=== PATIENT | female | born 1935 | race Caucasian/White ===

== ENCOUNTER 2017-08-14 03:07 | Inpatient (IN) | payer MEDICARE, OTHER ==
[~2017-08-14] VITALS: Ht 175.3 cm; Wt 82.6 kg
[2017-08-14] MEDS ORDERED: SODIUM CHLORIDE 0.9% 1,000 ML IV ONE (03:10)
[2017-08-14 03:25] LABS: BASOPHILS % (AUTO) 0 % (0-1); EOSINOPHILS # (AUTO) 0.01 x10^3/uL (0-0.4); EOSINOPHILS % (AUTO) 0 % (1-7); LYMPHOCYTES # (AUTO) 0.55 x10^3/uL (1-3.4); LYMPHOCYTES % (AUTO) 7 % (22-44); MD NO; MEAN CORPUSCULAR HEMOGLOBIN 33.2 pg (27.0-34.8); MEAN CORPUSCULAR HGB CONC 33.9 g/dL (32.4-35.8); MEAN CORPUSCULAR VOLUME 97.8 fL (80-100); MEAN PLATELET VOLUME 7.1 fL (7.4-10.4); MONOCYTES # (AUTO) 0.16 x10^3/uL (0.2-0.8); MONOCYTES % (AUTO) 2 % (2-9); NEUTROPHILS # (AUTO) 6.85 x10^3/uL (1.8-6.8); NEUTROPHILS % (AUTO) 91 % (42-75); PLATELET COUNT 208 x10^3/uL (130-400); RED CELL DISTRIBUTION WIDTH 14.1 % (9.6-15.2)
[2017-08-14] MEDS ORDERED: MORPHINE SULFATE 4 MG/ML, 1ML ONE (03:25)
[2017-08-14] MEDS ORDERED: PROMETHAZINE 25 MG/ML, 1ML ONE (03:25)
[2017-08-14] MEDS ORDERED: SODIUM CHLORIDE FLUSH 10ML SYR IVF ONE (03:30)
[2017-08-14] MEDS ORDERED: SODIUM CHLORIDE 0.9% 1,000ML IVBOLUS ONE (03:30)
[2017-08-14] MEDS ORDERED: MORPHINE SULFATE 4 MG/ML, 1ML IVPush PRN (03:30)
[2017-08-14] MEDS ORDERED: PROMETHAZINE 25 MG/ML, 1ML IM ONE (03:30)
[2017-08-14 03:36] LABS: INTERNATIONAL NORMALIZED RATIO 1.03 (0.93-1.1); PROTHROMBIN TIME 10.7 Seconds (9.6-11.5)
[2017-08-14 03:38] LABS: ALANINE AMINOTRANSFERASE 34 U/L (12-78); ALBUMIN 3.9 g/dL (3.4-5.0); ANION GAP 10 mmol/L (5-15); CALCIUM 8.3 mg/dL (8.5-10.1); CHLORIDE 106 mmol/L (98-107); CREATININE 0.97 mg/dL (0.55-1.02)
[2017-08-14 03:40] LABS: ALKALINE PHOSPHATASE 48 U/L (45-117); BILIRUBIN,TOTAL 0.7 mg/dL (0.2-1.0); TOTAL PROTEIN 7.1 g/dL (6.4-8.2)
[2017-08-14] MEDS ORDERED: cilostazol (03:44)
[2017-08-14] MEDS ORDERED: atorvastatin (03:44)
[2017-08-14] MEDS ORDERED: acyclovir (03:44)
[2017-08-14] MEDS ORDERED: oxybutynin (03:44)
[2017-08-14] MEDS ORDERED: LEVO112T4 PO (03:44)
[2017-08-14 05:30] VITALS: BP 125/64
[2017-08-14] MEDS ORDERED: ONDANSETRON ODT 4 MG PO PRN (06:00)
[2017-08-14] MEDS ORDERED: PROMETHAZINE 25 MG/ML, 1ML IM PRN (06:00)
[2017-08-14] MEDS ORDERED: OXYcodone IR 5MG TABLET PO PRN (06:00)
[2017-08-14] MEDS ORDERED: hydrALAzine 20 MG/ML, 1ML IVPush PRN (06:00)
[2017-08-14] MEDS ORDERED: morphine SULFATE 10 MG/ML, 1ML IVPush PRN (06:00)
[2017-08-14] MEDS ORDERED: ONDANSETRON 2MG/ML, 2ML IVPush PRN (06:00)
[2017-08-14 06:28] LABS: FREE T4 (FREE THYROXINE) 1.44 ng/dL (0.76-1.46); THYROID STIMULATING HORMONE 1.3 mIU/L (0.358-3.740)
[2017-08-14 07:25] VITALS: BP 110/66
[2017-08-14] MEDS: SODIUM CHLORIDE 0.9% 1,000 ML IV SCH ×2 (07:44→12:22)
[2017-08-14] MEDS: LEVOTHYROXINE 100 MCG INJ IVPush SCH (07:51)
[2017-08-14] MEDS: PANTOPRAZOLE 40 MG IV IVPush SCH (07:51)
[2017-08-14 08:53] LABS: MICROSCOPIC AUTO
[2017-08-14 08:56] LABS: CULTURE INDICATED? NO
[2017-08-14 13:16] VITALS: BP 112/66
[2017-08-14 18:56] VITALS: BP 119/69
[2017-08-15] MEDS: SODIUM CHLORIDE 0.9% 1,000 ML IV SCH (00:08)
[2017-08-15 03:32] VITALS: BP 114/69
[2017-08-15 06:08] LABS: BASOPHILS # (AUTO) 0.12 x10^3/uL (0-0.1); BASOPHILS % (AUTO) 2 % (0-1); EOSINOPHILS # (AUTO) 0.16 x10^3/uL (0-0.4); EOSINOPHILS % (AUTO) 3 % (1-7); LYMPHOCYTES # (AUTO) 1.01 x10^3/uL (1-3.4); LYMPHOCYTES % (AUTO) 16 % (22-44); MD NO; MEAN CORPUSCULAR HEMOGLOBIN 33.5 pg (27.0-34.8); MEAN CORPUSCULAR HGB CONC 33.9 g/dL (32.4-35.8); MEAN CORPUSCULAR VOLUME 98.8 fL (80-100); MEAN PLATELET VOLUME 6.9 fL (7.4-10.4); MONOCYTES # (AUTO) 0.65 x10^3/uL (0.2-0.8); MONOCYTES % (AUTO) 10 % (2-9); NEUTROPHILS # (AUTO) 4.41 x10^3/uL (1.8-6.8); NEUTROPHILS % (AUTO) 70 % (42-75); PLATELET COUNT 172 x10^3/uL (130-400); RED BLOOD COUNT 4.24 x10^6/uL (3.82-5.3); RED CELL DISTRIBUTION WIDTH 14.3 % (9.6-15.2)
[2017-08-15 06:21] LABS: CHLORIDE 113 mmol/L (98-107)
[2017-08-15 06:31] LABS: ALANINE AMINOTRANSFERASE 27 U/L (12-78); ALKALINE PHOSPHATASE 41 U/L (45-117); ANION GAP 7 mmol/L (5-15); BILIRUBIN,TOTAL 0.8 mg/dL (0.2-1.0); CALCIUM 7.5 mg/dL (8.5-10.1); CHOL/HDL RATIO 2.2; CHOLESTEROL, TOTAL 116 mg/dL (140-239); HDL CHOL % 46 % (28-40); HDL CHOLESTEROL (DIRECT) 53 mg/dL (40-60); LDL CHOLESTEROL,CALCULATED 40 mg/dL (54-169); LDL/HDL RATIO 0.8 (0.5-3.0); TOTAL PROTEIN 5.9 g/dL (6.4-8.2); TRIGLYCERIDES 113 mg/dL (50-200); VLDL CHOLESTEROL 23 mg/dL (0-25)
[2017-08-15 07:49] VITALS: BP 137/74
[2017-08-15] MEDS: LEVOTHYROXINE 100 MCG INJ IVPush SCH (08:44)
[2017-08-15] MEDS: PANTOPRAZOLE 40 MG IV IVPush SCH (08:44)
[2017-08-15 13:06] VITALS: BP 128/72
[2017-08-15 20:14] VITALS: BP 110/64
[2017-08-16 01:48] VITALS: BP_SYST 114; BP_SYST 117; BP_SYST 132; BP_DIAS 71; BP_DIAS 74; BP_DIAS 80
[2017-08-16 06:06] LABS: ANION GAP 5 mmol/L (5-15); CALCIUM 7.9 mg/dL (8.5-10.1); CHLORIDE 112 mmol/L (98-107)
[2017-08-16 06:07] LABS: CREATININE 0.72 mg/dL (0.55-1.02)
[2017-08-16 07:44] VITALS: BP 121/73
[2017-08-16] MEDS: LEVOTHYROXINE 100 MCG INJ IVPush SCH (07:48)
[2017-08-16] MEDS: PANTOPRAZOLE 40 MG IV IVPush SCH (07:48)
[2017-08-16 14:23] VITALS: BP 113/64
[2017-08-16] MEDS ORDERED: OMEP-110 PO (14:43)
== END 2017-08-16 16:55 | disposition home or self-care (01) | DRG 388 ==
LOC: ED 05:00 → 4EST 05:01 → DCLOUNGE 08-16 16:23
PROVIDERS: ADMIT Internal Medicine; ATTEND Internal Medicine
PROC: 0D9670Z Drainage of Stomach with Drainage Device, Via Natural or Artificial Opening (ICD-10-PCS; principal; 2017-08-15)
DX: K56.2 Volvulus (principal); J96.00 Acute respiratory failure, unspecified whether with hypoxia or hypercapnia; K44.0 Diaphragmatic hernia with obstruction, without gangrene; J98.11 Atelectasis; E03.9 Hypothyroidism, unspecified; E78.5 Hyperlipidemia, unspecified; I73.9 Peripheral vascular disease, unspecified; Z90.710 Acquired absence of both cervix and uterus; Z90.49 Acquired absence of other specified parts of digestive tract; R91.1 Solitary pulmonary nodule; N31.9 Neuromuscular dysfunction of bladder, unspecified; Z87.891 Personal history of nicotine dependence
CPT/HCPCS: 36415; 74018; 74241; 80048; 80053; 80061; 81001; 83690; 83735; 84100; 84439; 84443; 85025; 85610; 85730; 96361; 96372; 96374; J2550; C9113; J7030

== ENCOUNTER → 2017-09-06 | Outpatient (CLI) | payer MEDICARE, OTHER ==
[~2017-09-06] MED LIST: ACYC-114 PO; ATOR20TA PO; CILO50TA PO; LEVO112T4 PO; OMEP-110 PO; OXYB10TA6 PO; acyclovir; atorvastatin; cilostazol; oxybutynin
== END | disposition home or self-care (01) ==
LOC: STAR 09:56
PROVIDERS: ATTEND Surgery
DX: Z01.818 Encounter for other preprocedural examination (principal)
CPT/HCPCS: 93005

== ENCOUNTER 2017-09-12 05:27 | Inpatient (IN) | payer MEDICARE, OTHER ==
[~2017-09-12] VITALS: Ht 176.5 cm; Wt 81.5 kg
[2017-09-12] MEDS ORDERED: LACTATED RINGERS 1,000 ML IV SCH (06:11)
[2017-09-12 06:31] VITALS: BP 108/68
[2017-09-12] MEDS ORDERED: EPINEPHRINE 1 MG/ML, 1ML ONE (07:14)
[2017-09-12] MEDS ORDERED: BUPIVACAINE/PF 0.25% ONE (07:14)
[2017-09-12] MEDS ORDERED: MIDAZOLAM 1 MG/ML, 2ML ONE (07:22)
[2017-09-12] MEDS ORDERED: FENTANYL PF 100 MCG/2ML ONE ×3 (07:22→10:27)
[2017-09-12] MEDS ORDERED: GABAPENTIN 300 MG CAPSULE PO ONE (07:30)
[2017-09-12] MEDS ORDERED: ACETAMINOPHEN 500 MG TABLET PO ONE (07:30)
[2017-09-12] MEDS ORDERED: FAMOTIDINE 20 MG TABLET PO ONE (07:30)
[2017-09-12] MEDS ORDERED: OXYcodone IR 5MG TABLET PO ONE (07:30)
[2017-09-12] MEDS ORDERED: ONDANSETRON ODT 8 MG PO ONE (07:30)
[2017-09-12] MEDS ORDERED: ROCURONIUM 10 MG/ML,10ML ONE (07:33)
[2017-09-12] MEDS ORDERED: BUPIVACAINE/PF 0.25% INFIL ONE (08:19)
[2017-09-12] MEDS ORDERED: EPINEPHRINE 1 MG/ML, 1ML INFIL ONE (08:20)
[2017-09-12] MEDS ORDERED: ONDANSETRON ODT 8 MG PO PRN (09:00)
[2017-09-12] MEDS ORDERED: FENTANYL PF 100 MCG/2ML IV PRN (09:00)
[2017-09-12] MEDS ORDERED: EPHEDRINE 50 MG/ML, 1ML IVPush PRN (09:00)
[2017-09-12] MEDS ORDERED: hydrALAzine 20 MG/ML, 1ML IV PRN (09:00)
[2017-09-12] MEDS ORDERED: PROMETHAZINE 25 MG/ML, 1ML IV PRN (09:00)
[2017-09-12] MEDS ORDERED: ALBUTEROL SULFATE 2.5 MG/3 ML NPPB PRN (09:00)
[2017-09-12] MEDS ORDERED: HYDROmorphone 1 MG/ML, 1ML IV PRN (09:00)
[2017-09-12] MEDS ORDERED: MIDAZOLAM 1 MG/ML, 2ML IV PRN (09:00)
[2017-09-12] MEDS ORDERED: MEPERIDINE/PF 25MG/0.5ML IVPush PRN (09:00)
[2017-09-12] MEDS ORDERED: OXYcodone 5 MG/5 ML ORAL.SOL UDC PO PRN ×2 (09:00→13:00)
[2017-09-12] MEDS ORDERED: HYDROcodone/APAP 7.5-325MG/15ML UDC PO PRN (09:00)
[2017-09-12] MEDS ORDERED: DIAZEPAM 5 MG/ML, 2ML IVPush PRN (09:00)
[2017-09-12] MEDS ORDERED: LABETALOL 5MG/ML, 20ML IV PRN (09:00)
[2017-09-12] MEDS ORDERED: EPHEDRINE 50 MG/ML, 1ML IM PRN (09:00)
[2017-09-12] MEDS ORDERED: GLYCOPYRROLATE 0.2MG/1ML, 5ML ONE (09:56)
[2017-09-12] MEDS ORDERED: DEXAMETHASONE 4 MG/ML, 1ML ONE (09:56)
[2017-09-12] MEDS ORDERED: SUCCINYLCHOLINE 20 MG/ML, 10ML ONE (09:56)
[2017-09-12] MEDS ORDERED: ONDANSETRON 2MG/ML, 2ML ONE (09:56)
[2017-09-12] MEDS ORDERED: NEOSTIGMINE 1 MG/ML, 10ML ONE (09:56)
[2017-09-12] MEDS ORDERED: CEFAZOLIN 1,000 MG ONE (09:56)
[2017-09-12] MEDS ORDERED: PROPOFOL 10 MG/ML, 20ML ONE (09:56)
[2017-09-12] MEDS ORDERED: OXYcodone 5 MG/5 ML ORAL.SOL UDC ONE (11:21)
[2017-09-12] MEDS ORDERED: KETOROLAC 30 MG/1 ML ONE (11:21)
[2017-09-12] MEDS ORDERED: KETOROLAC 30 MG/1 ML IVPush ONE (11:30)
[2017-09-12] MEDS ORDERED: MORPHINE SULFATE 4 MG/ML, 1ML IVPush PRN (13:00)
[2017-09-12] MEDS ORDERED: ACETAMINOPHEN 650 MG/20.3 ML UDC PO SCH (13:00)
[2017-09-12] MEDS ORDERED: ONDANSETRON 2MG/ML, 2ML IVPush PRN (13:00)
[2017-09-12] MEDS ORDERED: OXYBUTYNIN CHLORIDE 5 MG TABLET PO PRN (13:30)
[2017-09-12] MEDS ORDERED: IBUPROFEN 100 MG/5 ML UDC PO SCH (13:30)
[2017-09-12] MEDS: D5%-0.45NACL+KCL 20MEQ 1,000 ML IV SCH (16:09)
[2017-09-12] MEDS: IBUPROFEN 200 MG TABLET PO SCH ×2 (16:09→21:40)
[2017-09-12] MEDS: ACETAMINOPHEN 500 MG TABLET PO SCH ×2 (16:10→22:00)
[2017-09-12 16:48] VITALS: BP 102/63
[2017-09-12] MEDS ORDERED: KETOROLAC 30 MG/1 ML IV PRN (17:30)
[2017-09-12 20:00] VITALS: BP 116/70
[2017-09-12] MEDS: ATORVASTATIN 20 MG TABLET PO SCH (20:46)
[2017-09-13 02:00] VITALS: BP 131/68
[2017-09-13 04:00] VITALS: BP 119/67
[2017-09-13] MEDS: ACETAMINOPHEN 500 MG TABLET PO SCH ×4 (04:00→21:50)
[2017-09-13] MEDS: D5%-0.45NACL+KCL 20MEQ 1,000 ML IV SCH ×2 (05:32→18:04)
[2017-09-13] MEDS: LEVOTHYROXINE 112 MCG TABLET PO SCH (05:49)
[2017-09-13 07:58] VITALS: BP 113/54
[2017-09-13] MEDS: ACYCLOVIR 400 MG TABLET PO SCH (08:07)
[2017-09-13] MEDS: CILOSTAZOL 100 MG TABLET PO SCH (08:08)
[2017-09-13] MEDS: ENOXAPARIN 40 MG/0.4 ML SQ SCH (08:09)
[2017-09-13] MEDS: IBUPROFEN 200 MG TABLET PO SCH ×2 (08:09→16:13)
[2017-09-13 11:50] VITALS: BP 109/54
[2017-09-13] MEDS ORDERED: OXYcodone 5 MG/5 ML ORAL.SOL UDC PO ONE (12:00)
[2017-09-13 12:30] VITALS: BP 112/71
[2017-09-13 20:00] VITALS: BP 112/67
[2017-09-13] MEDS: ATORVASTATIN 20 MG TABLET PO SCH ×2 (21:00→21:50)
[2017-09-14 02:00] VITALS: BP 153/86
[2017-09-14] MEDS: ACETAMINOPHEN 500 MG TABLET PO SCH ×2 (04:00→06:11)
[2017-09-14] MEDS: LEVOTHYROXINE 112 MCG TABLET PO SCH (06:11)
[2017-09-14] MEDS: D5%-0.45NACL+KCL 20MEQ 1,000 ML IV SCH (06:26)
[2017-09-14] MEDS: ENOXAPARIN 40 MG/0.4 ML SQ SCH (07:36)
[2017-09-14] MEDS: CILOSTAZOL 100 MG TABLET PO SCH (07:36)
[2017-09-14 08:55] VITALS: BP 114/66
[2017-09-14] MEDS: IBUPROFEN 200 MG TABLET PO SCH ×2 (09:16)
[2017-09-14] MEDS: ACYCLOVIR 400 MG TABLET PO SCH (09:16)
== END 2017-09-14 10:38 | disposition home or self-care (01) | DRG 326 ==
LOC: OUT 05:27 → 4NOR 11:59 → OUT 14:28 → DCLOUNGE 09-14 10:23
PROVIDERS: ADMIT Surgery; ATTEND Surgery
PROC: 0DV44ZZ Restriction of Esophagogastric Junction, Percutaneous Endoscopic Approach (ICD-10-PCS; 2017-09-12)
PROC: 0BUT4JZ Supplement Diaphragm with Synthetic Substitute, Percutaneous Endoscopic Approach (ICD-10-PCS; principal; 2017-09-12 07:30)
DX: K44.9 Diaphragmatic hernia without obstruction or gangrene (principal); E43 Unspecified severe protein-calorie malnutrition; R13.10 Dysphagia, unspecified; J45.909 Unspecified asthma, uncomplicated; E03.9 Hypothyroidism, unspecified
CPT/HCPCS: 71045; J0171; J0690; J1100; J1650; J1885; J2250; J2405; J2704; J2710; J3010; J3490; Q0162; J0330; J3480; J7120; Q4116